=== PATIENT | male | born 1980 | race Caucasian/White ===

== ENCOUNTER 2017-09-02 14:16 | Emergency (ER) | payer BC, MEDICAID ==
[~2017-09-02] VITALS: Ht 172.7 cm; Wt 75.5 kg
[2017-09-02] MEDS ORDERED: SODIUM CHLORIDE FLUSH 10ML SYR IVF ONE (15:30)
[2017-09-02 16:13] LABS: HEMATOCRIT 46.8 % (39.2-51.8); HEMOGLOBIN 15.9 g/dL (13.7-18.0)
[2017-09-02 16:22] LABS: BLOOD UREA NITROGEN 11 mg/dL (7-18)
[2017-09-02] MEDS ORDERED: KETOROLAC 60 MG/2 ML IM ONE (16:30)
[2017-09-02] MEDS ORDERED: KETOROLAC 30 MG/1 ML ONE (16:39)
[2017-09-02 16:46] VITALS: BP 111/79
[2017-09-02] MEDS ORDERED: MAALOX/HYOSCYAMINE/LIDOCAINE 45 ML BTL ONE (17:30)
[2017-09-02] MEDS ORDERED: FAMOTIDINE 20 MG TABLET ONE (17:30)
[2017-09-02] MEDS ORDERED: FAMOTIDINE 20 MG TABLET PO ONE (17:30)
[2017-09-02] MEDS ORDERED: MAALOX/HYOSCYAMINE/LIDOCAINE 45 ML BTL PO ONE (17:30)
== END 2017-09-02 17:36 | disposition home or self-care (01) ==
LOC: ED 17:30
DX: M54.9 Dorsalgia, unspecified (principal); R10.13 Epigastric pain
CPT/HCPCS: 36415; 74000; 76770; 80048; 81003; 82040; 83690; 85025; 96372; 99285; J1885